=== PATIENT | female | born 1975 | race African-American/Black ===

== ENCOUNTER 2017-04-28 08:36 | Emergency (ER) | payer OTHER ==
[~2017-04-28] VITALS: Ht 167.6 cm; Wt 74.4 kg
[~2017-04-28 08:36] MED LIST: AMLODIPINE BESY10 M1 PO; CLOMIPRAMINE HC50 M1 PO; CO Q-10200 MG PO; LEVOCARNIT100 MG/1 M PO; LITHIUM CARBON300 M4 PO; METOPROLOL TART25 M1 PO; PANTOPRAZOLE SO40 M1 PO; POLYETHYLENE GL17 GM PO; PROAIR HFA8.5 GM INH; QUETIAPINE FUM300 M1 PO; REGLAN10 M1 PO
--- NOTE | 2017-04-28 09:01 | ED GI/GU/ABDOMINAL COMPLAINT ---
History of Present Illness General Chief Complaint: General Adult Stated Complaint: VOMITTING Source: patient, old records Exam Limitations: no limitations Vital Signs & Intake/Output Vital Signs & Intake/Output Vital Signs Date Time Temp Pulse Resp B/P B/P Pulse O2 O2 Flow FiO2 Mean Ox Delivery Rate 04/28 0840 97.2 106 16 130/87 96 Room Air Allergies Coded Allergies: sulfamethoxazole (From BACTRIM) (Severe, HIVES 04/11/17) trimethoprim (From BACTRIM) (Severe, HIVES 04/11/17) divalproex sodium (From DEPAKOTE) (HAIR LOSS 04/11/17) Reconcile Medications Amlodipine Besylate 10 MG TABLET 1 TAB PO QAM BP (Reported) Ferrous Sulfate 325 MG (65 MG IRON) TABLET 1 TAB PO DAILY SUPPLEMENT ( Reported) Metoprolol Tartrate 25 MG TABLET 1 TAB PO BID BP (Reported) Pantoprazole Sodium 40 MG TABLET.DR 1 TAB PO BID GI (Reported) Potassium Chloride (Klor-Con 10) 10 MEQ TABLET.ER 1 TAB PO BID SUPPLEMENT ( Reported) Quetiapine Fumarate 300 MG TABLET 1-3 TAB PO QPM SLEEP (Reported) Triage Note: 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 HAS GI DOCTOR IN [place] BUT STATES " HES NOT DOING ANYTHING FOR ME" PT WOULD LIKE REFERAL TO ANOTHER DOCTOR. LAST VOMITTED 0600 Triage Nurses Notes Reviewed? yes ? n Is pt currently ? No Onset: Gradual Duration: week(s): (SEVERAL), waxing and waning Timing: multiple episodes today Quality/Severity: moderate, severe Prior Abdominal Problems: similar symptoms Modifying Factors: Worsens With: eating. HPI: This is a 41-year-old female with a self-reported history of cyclical vomiting who comes to the ER for chief complaint of abdominal pain nausea and vomiting and states that she would like referral to a different GI doctor. Patient is prescribed Reglan, Zofran and potassium but states that her symptoms are not getting any better. She states that she has not eaten a regular meal since the day after Thanks[place]. It is very sporadic and can come after just taking one glass of water. Patient was seen here on the but states she was not given any new GI referrals. Patient states the pain is in her epigastric region and radiates to her back and sometimes her shoulder after eating. She reports having numerous tests done at her previous doctor's office. She states that none of her current treatments are helping her. She denies any chance of , LMP was at the end of March. Denies any vaginal bleeding or discharge. Denies any fever or chills. Past History Travel History Traveled to [place] past 21 day No Medical History Any Pertinent Medical History? see below for history Neurological: NONE EENT: NONE Cardiovascular: hypertension Respiratory: NONE Gastrointestinal: pancreatitis, CYCLIC VOMITING SYNDROME Hepatic: NONE Renal: NONE Musculoskeletal: NONE Psychiatric: NONE Endocrine: NONE Blood Disorders: NONE Cancer(s): NONE OVERCOIL STEPPER/Reproductive: NONE Surgical History Surgical History: non-contributory Psychosocial History What is your primary language Yi Tobacco Use: Never used ETOH Use: denies use Illicit Drug Use: denies illicit drug use Family History Hx Contributory? No Review of Systems Review of Systems Constitutional: Denies: chills, fever. EENTM: Reports: no symptoms. Respiratory: Reports: no symptoms. Cardiovascular: Reports: no symptoms. GI: Reports: abdominal pain, nausea, vomiting. Genitourinary: Reports: no symptoms. Musculoskeletal: Reports: back pain. Skin: Reports: no symptoms. Neurological/Psychological: Reports: no symptoms. Hematologic/Endocrine: Denies: bruising, bleeding, polyuria, polydipsia. Immunologic/Allergic: Denies: splenectomy. All Other Systems: Reviewed and Negative Physical Exam Physical Exam General Appearance: well developed/nourished, alert, awake Head: atraumatic, normal appearance Eyes: Bilateral: normal appearance, PERRL, EOMI. Ears, Nose, Throat, Mouth: hearing grossly normal, moist mucous membrane Neck: normal inspection, supple, full range of motion Respiratory: normal breath sounds, chest non-tender, no respiratory distress Cardiovascular: regular rate/rhythm, normal peripheral pulses Peripheral Pulses: 2+ radial (R), 2+ radial (L) Gastrointestinal: normal bowel sounds, soft, tenderness (EPIGASTRIC) Back: normal inspection, normal range of motion Neurologic/Psych: no motor/sensory deficits, awake, alert, oriented x 3 Core Measures ACS in differential dx? No Sepsis Present: No Sepsis Focused Exam Completed? No Progress Differential Diagnosis: biliary colic, cholecystitis, pancreatitis, PUD/GERD, CYCLICAL VOMITING SYNDROME Plan of Care: Orders Procedure Date/time Status URINE 04/28 906 Active URINALYSIS 04/28 906 Active COMPREHENSIVE METABOLIC PANEL 04/28 906 Complete CBC WITHOUT DIFFERENTIAL 04/28 906 Active Current Medications Sig/Edie Start time Last Medication Dose Stop Time Status Admin Potassium Chloride 60 MEQ ONCE ONE 04/28 1100 UNVr (Klor) 04/28 1101 Laboratory Tests 04/28/17 1009: Anion Gap 17 H, Estimated GFR > 60, BUN/Creatinine Ratio 12.5, Glucose 96, Calcium 10.1, Total Bilirubin 0.4, AST 28, ALT 31, Alkaline Phosphatase 73, Total Protein 8.0, Albumin 4.5, Globulin 3.5, Albumin/Globulin Ratio 1.3, CBC w Diff Pending, WBC Pending, RBC Pending, Hgb Pending, Hct Pending, MCV Pending, MCH Pending, RDW Pending, Plt Count Pending, MPV Pending, Gran % Pending, Lymphocytes % Pending, Monocytes % Pending, Eosinophils % Pending, Basophils % Pending, Absolute Granulocytes Pending, Absolute Lymphocytes Pending, Absolute Monocytes Pending, Absolute Eosinophils Pending, Absolute Basophils Pending, PUBS MCHC Pending NO VOMITING WHILE IN ED. COMFORTABLE SITTING ON STRETCHER. MILD HYPOKALEMIA, TOLERATED PO REPLACEMENT. REFERRAL FOR NEW GI DOCTOR GIVEN. ALL PREVIOUS CARE WAS AT A DIFFERENT HOSPITAL. Initial ED EKG: none Departure Departure Time of Disposition: 1055 Disposition: HOME OR SELF CARE Condition: Stable Clinical Impression Primary Impression: Hypokalemia Secondary Impressions: Cyclical vomiting Referrals: Imelda Rock APRN (PCP/Family) Preet BRADLEY,Audie Benitez MD,Moy Walter MD,Jaycob Additional Instructions: FOLLOW UP WITH THE GI DOCTORS LISTED CONTINUE YOUR REGLAN AND POTASSIUM Departure Forms: Customer Survey General Discharge Information
[2017-04-28] MEDS ORDERED: FERROUS SULFAT325 M3 PO (09:37)
[2017-04-28] MEDS ORDERED: KLOR-CON 1010 ME1 PO (09:38)
[2017-04-28 10:47] LABS: ABSOLUTE BASOPHIL COUNT 0 /CUMM (0.0-0.2); ABSOLUTE EOSINOPHIL COUNT 0.1 /CUMM (0.0-0.7); ABSOLUTE GRANULOCYTE CT 2.4 /CUMM (1.4-6.5); ABSOLUTE LYMPH COUNT 1.3 /CUMM (1.2-3.4); ABSOLUTE MONOCYTE COUNT 0.3 /CUMM (0.10-0.60); BASOPHIL % 0.9 % (0.0-2.0); EOSINOPHIL % 2.9 % (0-5); GRANULOCYTE % 57.9 % (42.2-75.2); HEMATOCRIT 33.5 % (37-47); MEAN CORPUSCULAR HGB 24.6 PG (27.0-31.0); MEAN CORPUSCULAR HGB CONC 31.8 G/DL (33.0-37.0); MEAN CORPUSCULAR VOLUME 77.4 FL (81.0-99.0); MEAN PLATELET VOLUME 9.3 FL (7.4-10.4); RBC DISTRIBUTION WIDTH 20.5 % (11.5-14.5); RED BLOOD CELL CT 4.34 /CUMM (4.20-5.40); WHITE BLOOD CELL COUNT 4.2 /CUMM (4.8-10.8)
[2017-04-28 10:57] LABS: PLATELET COUNT 356 /CUMM (130-400)
[2017-04-28 11:06] VITALS: BP 122/84
== END 2017-04-28 11:06 ==
LOC: ERH 08:36
PROVIDERS: Emergency Medicine
DX: E87.6 Hypokalemia (principal); G43.A0 Cyclical vomiting, in migraine, not intractable
CPT/HCPCS: 81025